=== PATIENT | female | born 1970 | race Caucasian/White ===

== ENCOUNTER 2020-11-10 11:38 | Inpatient (IN) | payer MEDICARE, OTHER, SELFPAY ==
[2020-11-10 12:42] LABS: #Lymphocytes 1.2 thou/uL (1.20-3.40); #Monocytes 0.8 thou/uL (0.11-0.59); #Neutrophils 8.5 thou/uL (1.40-6.50); %Basophils 0.4 % (0.0-1.0); %Eosinophils 0.1 % (0.0-10.0); %Lymphocytes 11.1 % (21.0-51.0); %Monocytes 7.8 % (0.0-10.0); %Neutrophils 80.7 % (42.0-75.0); Mean Corpuscular HGB CONC 33.8 g/dL (32.0-36.0); Mean Corpuscular Hemoglobin 33.1 pg (27.0-31.0); Mean Corpuscular Volume 97.9 fL (78.0-98.0); Mean Platelet Volume 7.6 fL (7.4-10.4); Platelet Count 210 thou/uL (130-400); RBC Distribution Width 13.4 % (11.5-14.5); Red Blood Cell (RBC) Count 4.53 mill/uL (4.20-5.40); White Blood Cell (WBC) Count 10.5 thou/uL (4.8-10.8)
--- NOTE | 2020-11-10 12:52 | RAD ---
XR Chest 1 View Portable History: Chest pain Comparison: None. Findings: Lungs are clear. No pneumothorax or effusion. Cardiac silhouette and mediastinal contours a re within normal limits. No acute osseous or malalignment. Impression: No acute intrathoracic abnormality.
[2020-11-10 13:05] LABS: ALT (SGPT) 75 U/L (8-55); AST (SGOT) 90 U/L (5-34); Albumin 5.1 g/dL (3.5-5.0); Alkaline Phosphatase 128 U/L (40-110); Anion Gap 23 mmol/L (10-20); BUN (Urea Nitrogen) 13 mg/dL (9.8-20.1); Bilirubin, Total 1.1 mg/dL (0.2-1.2); Calc. Creatinine Clearance 0 mL/min (70-130); Calcium 9.5 mg/dL (7.8-10.44); Carbon Dioxide 26 mmol/L (22-29); Chloride 93 mmol/L (98-107); Globulin 3.6 g/dL (2.4-3.5); Glucose 208 mg/dL (70-105); Potassium 3.5 mmol/L (3.5-5.1); Protein, Total 8.7 g/dL (6.0-8.3); Sodium 138 mmol/L (136-145)
[2020-11-10 13:12] LABS: Bilirubin 1+ (Negative); Blood, Urine 1+ (Negative); Clarity Turbid (Clear); Glucose, Urine (Dipstick) 30 mg/dL (Negative); Ketone, Urine 20 mg/dL (Negative); Leukocyte 250 Leu/uL (Negative); Nitrite Negative (Negative); Protein, Urine (Dipstick) 300 mg/dL (Neg-Trace); RBC/HPF 0-3 HPF (0-3); Specific Gravity, Urine 1.034 (1.002-1.036)
[2020-11-10 13:21] LABS: Bacteria/HPF Rare-Few HPF (None Seen); Mucous/LPF 2+ LPF (<2+)
[2020-11-10] MEDS ORDERED: Vancomycin 1 GM/200 ML BAG ONE (13:32)
[2020-11-10] MEDS ORDERED: Ibuprofen 200 MG TAB ONE (13:32)
--- NOTE | 2020-11-10 13:59 | RAD ---
THREE VIEWS OF THE RIGHT ANKLE: 11/10/20 COMPARISON: None. HISTORY: Fall down stairs with ankle pain and inability to dorsiflex. FINDINGS: Three views of the right ankle shows no evidence of acute fracture or dislocation. Mild anterior soft tissue swelling is seen. No degenerative changes are present. IMPRESSION: No evidence of acute osseous abnormality. POS: EAA
[2020-11-10] MEDS ORDERED: Meropenem 1 GM in Sodium Chloride 0.9% 100 ML IVPB SCH (14:00)
[2020-11-10] MEDS ORDERED: Ondansetron PF 4 MG/2 ML Vial ONE (14:29)
[2020-11-10 14:44] LABS: Acetaminophen Less than 6.0 mcg/mL (10.0-30.0); Alcohol Less than 10 mg/dL (Less than 10); Salicylate Less than 8.0 mg/dL (15.0-30.0)
--- NOTE | 2020-11-10 14:45 | CT ---
CT ABDOMEN AND PELVIS WITHOUT CONTRAST: 11/10/20 COMPARISON: None. HISTORY: Nausea, vomiting, and fever. TECHNIQUE: Multiple contiguous axial images were obtained in a CT of the abdomen and pelvis without contrast. Sa gittal and coronal reformats were performed. FINDINGS: The patient is status post cholecystectomy. There is diffuse fatty infiltration of the liver. No foca l liver lesions are seen. The kidneys, adrenal glands, spleen, and pancreas are unremarkable. No calc ifications are seen in either kidney or ureter and there is no evidence of hydronephrosis. No free air, free fluid, or stranding changes are see in the abdomen or pelvis. The reproductive orga ns are unremarkable. The large and small bowel are unremarkable. The appendix is normal. No abdominal or pelvic lymphadenopathy are seen. Mild degenerative changes are seen in the spine. The visualized inferior thorax and abdominal wall soft tissues are unremarkable. IMPRESSION: 1. No evidence of acute intra-abdominal/pelvic abnormality. 2. Fatty liver. POS: EAA
[2020-11-10 14:53] LABS: Medtox Reader # READER 4; Opiate Screen Detected (NotDetected); THC/Cannabinoid Screen Detected (NotDetected)
[2020-11-10 14:54] LABS: Amphetamine Not Detected (NotDetected); Barbiturates Screen Not Detected (NotDetected); Benzodiazepine Screen Not Detected (NotDetected); Cocaine Metabolite Screen Not Detected (NotDetected); Medtox Control Line Valid? VALID (VALID); Methadone Not Detected (NotDetected); Methamphetamine Not Detected (NotDetected); Oxycodone Screen Not Detected (NotDetected); Phencyclidine (PCP) Not Detected (NotDetected); Tricyclic Screen Not Detected (NotDetected)
--- NOTE | 2020-11-10 15:31 | PDOC.FPRHP ---
- History of Present Illness Chief Complaint: N/V, fever History of Present Illness: Ms. Rankin is a 50 yo F with a history of hypothyroidism, HLD, and alcoholism complaining of vomiting and fever for 2 days with a Tmax of 103 at home. Her boyfriend has been covering her with ice packs to try and cool her down. Patient explained she had an episode of binge drinking 3-4 days ago. She reports binge drinking every 2 months with no alcohol consumption in between. Patient thought her vomiting was related to the drinking but says she feels so much worse than she normally does. Patient also complains of CP and SOB for the past month that is worse when she walks outside. Patient denies dysuria and drug use. She says her boyfriend's brother had COVID. ED Course: 1L NS, vanc, cefepime - Allergies/Adverse Reactions Allergies Allergy/AdvReac Type Severity Reaction Status Date / Time cefaclor [From Ceclor] Allergy Rash Verified 11/10/20 13:50 ciprofloxacin [From Cipro] Allergy Verified 11/10/20 13:50 Sulfa (Sulfonamide Allergy Verified 11/10/20 13:50 Antibiotics) - Home Medications Medication Instructions Recorded Confirmed Type QUEtiapine Fumarate [Seroquel] 300 mg PO HS 11/10/20 11/10/20 History - History PMHx: hypothyroid, HLD, anxiety, depression, TIA PSHx: cervical spinal fusions, urethrotomy FHx: Mom-breast cancer, Sister - hypothyroid Social: Denies tobacco or drug use. Endorses alcohol use, 3-4 days of binge drinking approximately every 2 months. - Review of Systems General: reports: fever/chills ENT: denies: nasal congestion Respiratory: reports: shortness of breath. denies: cough, congestion Cardiovascular: reports: chest pain. denies: edema Gastrointestinal: reports: nausea, vomiting. denies: diarrhea, constipation, abdominal pain, GI bleeding Genitourinary: denies: dysuria Skin: denies: rashes, itching Musculoskeletal: denies: pain Neurological: denies: syncope Psychological: reports: anxiety, depression - Vital signs BP: 141/95 HR: 120 RR: 15 Tmax: 100.6 Pox: 97% on RA Wt: 68kg - Physical Exam -Constitutional: tremulous HEENT: normocephalic and atraumatic, EOMI, no scleral icterus, grossly normal vision, grossly normal hearing Neck: FROM Heart: RRR, no murmurs/rubs/gallops, pulses present, no edema Lungs: CTAB, no respiratory distress Abdomen: soft, non-tender Musculoskeletal: ROM grossly normal -Musculoskeletal: plantar flexed right foot Heme/Lymphatic: no unusual bruising or bleeding Psychiatric: normal mood and affect, good judgment and insight, intact recent and remote memory FMR H&P: Results - Labs Result Diagrams: 11/11/20 05:22 11/11/20 05:22 Lab results: WBC 10.5 thou/uL (4.8-10.8) 11/10/20 12:28 Hgb 15.0 g/dL (12.0-16.0) 11/10/20 12:28 Hct 44.3 % (36.0-47.0) 11/10/20 12:28 MCV 97.9 fL (78.0-98.0) 11/10/20 12:28 Plt Count 210 thou/uL (130-400) 11/10/20 12:28 Neutrophils % 80.7 % (42.0-75.0) H 11/10/20 12:28 Sodium 138 mmol/L (136-145) 11/10/20 12:28 Potassium 3.5 mmol/L (3.5-5.1) 11/10/20 12:28 Chloride 93 mmol/L (98-107) L 11/10/20 12:28 Carbon Dioxide 26 mmol/L (22-29) 11/10/20 12:28 BUN 13 mg/dL (9.8-20.1) 11/10/20 12:28 Creatinine 1.02 mg/dL (0.6-1.1) 11/10/20 12:28 Glucose 208 mg/dL (70-105) H 11/10/20 12:28 Lactic Acid 2.3 mmol/L (0.5-2.2) H 11/10/20 12:28 Calcium 9.5 mg/dL (7.8-10.44) 11/10/20 12:28 Total Bilirubin 1.1 mg/dL (0.2-1.2) 11/10/20 12:28 AST 90 U/L (5-34) H 11/10/20 12:28 ALT 75 U/L (8-55) H 11/10/20 12:28 Alkaline Phosphatase 128 U/L (40-110) H 11/10/20 12:28 Serum Total Protein 8.7 g/dL (6.0-8.3) H 11/10/20 12:28 Albumin 5.1 g/dL (3.5-5.0) H 11/10/20 12:28 Urine Ketones 20 mg/dL (Negative) A 11/10/20 12:17 Urine Blood 1+ (Negative) A 11/10/20 12:17 Urine Nitrite Negative (Negative) 11/10/20 12: Ur Leukocyte Esterase 250 Ava/uL (Negative) A 11/10/20 12: Urine RBC 0-3 HPF (0-3) 11/10/20 12: Urine WBC 11-20 HPF (0-3) A 11/10/20 12:17 Ur Squamous Epith Cells 4-6 HPF (0-3) A 11/10/20 12: Urine Bacteria Rare-Few HPF (None Seen) 11/10/20 12:17 - Radiology Interpretation Chest x-ray Status: report reviewed by me (no cardiopulmonary process) CT scan - abdomen Status: report reviewed by me (Abd/Pelvis: fatty liver) Other Status: report reviewed by me (Right ankle Xray: no acute process) FMR H&P: A/P - Plan 50 yo F with history of hypothyroidism and alcoholism complaining of 2 days of vomiting and fever Urinary Tract Infection -UA: WBC, LE, blood -Flu and COVID neg -Tmax 100.6, HR 120s, RR 22 -WBC 10.5, lactate 2.3>1.3 -Received 1L NS, vanc, and meropenem in ED -Continue cefepime due to patient's cefaclor allergy (no rocephin) -Procal pending -LR 120mL/hr -HIV, Hepatitis panel pending -Urine gram stain, UCx, BCx pending Alcohol Abuse -ASE protocol -Librium 25mg q6h, Valium 5 prn Hypothyroidism -Patient reports she is not currently taking medication -TSH pending Insomnia -Continue Seroquel 300mg HLD -Will try to determine what medication is supposed to be on Depression/Anxiety -Takes Zoloft, unsure of what dose. Will MedRec tomorrow. Diet: Regular DVT PPx: lovenox PCP: [facility] Code: FULL Dispo: eLOS <48 hours pending treatment of UTI and improvement of vital signs FMR H&P: Upper Level - Plan Date/Time: 11/10/20 1531 IQuirino DO, have evaluated this patient and agree with findings/plan as outlined by international banker resident. Pertinent changes/additions are listed here. 50 yo F with hx of alcohol abuse, and psychiatric dx presents to ED for 2 days nausea and vomiting she also reports a fever at home, chest tightness for the last month with sob. no presyncope, DEWEY, or angina symptoms. She recently consumed a large amount of alcohol, she reports doing this every few months. her last drink was 3-4 days ago. she denies any drug use, dysuria, body aches or known exposures. in the ED she had elevated LFTS and a UA that was + for wbc, and a lactic acidosis. She was given merem/vanc and a L of fluid. CT abd/pel was neg except for fatty liver. on my exam she has psychomotor agitation and tachycardia. no murmurs, CTAB, abd ttp over suprapubic area mainly. no DECLAN, pulses full. Acute alcohol withdrawal/drug intoxication is most likely her primary problem, we will treat with benzos, initiate ASE protocol, admin thiamine. fever with possible UTI source will be treated with rocephin. hypovolemia 2/2 emesis consider cyclical vomiting syndrome, treat with IVF resusc. and phenegran. transaminitis and fatty liver likely 2/2 alcohol, obtain hepatitis studies and monitor. additionally for her febrile illness will test for HIV, covid neg. admit to med obs for ELOS<48hrs Addendum - Attending - Attending Attestation Date/Time: 11/11/20 2800 I personally evaluated the patient and discussed the management with Dr. Barrios/Mario. I agree with the History, Examination, Assessment and Plan documented above with any addition or exceptions noted below.
[2020-11-10 15:36] LABS: Lactic Acid 1.3 mmol/L (0.5-2.2)
[2020-11-10] MEDS ORDERED: Lorazepam 2 MG/ML VIAL ONE (16:12)
[2020-11-10] MEDS ORDERED: Acetaminophen 650 MG Suppository PR PRN (16:24)
[2020-11-10] MEDS ORDERED: Promethazine 25 MG TAB PO PRN (16:24)
[2020-11-10] MEDS ORDERED: Acetaminophen 325 MG TAB PO PRN (16:24)
[2020-11-10] MEDS ORDERED: diphenhydrAMINE 25 MG CAP PO PRN (16:38)
[2020-11-10 16:54] LABS: SARS-CoV-2 NAA Rapid Test Not Detected (NotDetected)
[2020-11-10] MEDS ORDERED: Thiamine 100 MG TAB PO SCH (17:15)
[2020-11-10] MEDS ORDERED: Acetaminophen 325 MG TAB ONE (18:09)
[2020-11-10 18:21] LABS: HBCM Index 0.08 S/CO (0-0.79); HBSAg Index 0.22 S/CO (0-0.99); HIV (1/2) Antibody/Antigen Non-Reactive (NonReactive); HIV 1/2 INDEX 0.13 S/CO (<1.00); Hep A IgM AB Non-Reactive (NonReactive); Hep A IgM S/CO 0.11 S/CO (0-0.79); Hep B Surf Ag Non-Reactive S/CO (NonReactive); Hep C IgG Ab Non-Reactive (NonReactive); Hep C Index 0.05 S/CO (0-0.79); Hepatitis B Core IgM Abs Non-Reactive (NonReactive)
[2020-11-10 19:25] LABS: Free T4 (Free Thyroxine) 0.72 ng/dL (0.70-1.48)
[2020-11-10] MEDS: Lactated Ringer's 1,000 ML IV SCH ×2 (20:41→20:53)
[2020-11-10] MEDS: Promethazine HCl 25 MG/ML VIAL IM/IV PRN (20:42)
[2020-11-10] MEDS: chlordiazePOXIDE HCl 25 MG CAP PO SCH (20:53)
[2020-11-10] MEDS: Cefepime 1 GM in Sodium Chloride 0.9% 100 ML IVPB SCH (20:57)
[2020-11-10 22:11] VITALS: BMI 24.7
[2020-11-10] MEDS: Diazepam 10 MG/2 ML SYRINGE IVP PRN (22:42)
[2020-11-11] MEDS: chlordiazePOXIDE HCl 25 MG CAP PO SCH ×5 (00:48→23:06)
[2020-11-11] MEDS: Lactated Ringer's 1,000 ML IV SCH ×6 (00:50→23:12)
[2020-11-11 05:46] LABS: #Eosinphils 0.1 thou/uL (0.0-0.7); #Lymphocytes 1.5 thou/uL (1.20-3.40); #Monocytes 0.3 thou/uL (0.11-0.59); %Basophils 0.6 % (0.0-1.0); %Eosinophils 1.8 % (0.0-10.0); %Lymphocytes 31.1 % (21.0-51.0); %Monocytes 6.9 % (0.0-10.0); %Neutrophils 59.7 % (42.0-75.0); Hemoglobin 12.2 g/dL (12.0-16.0); Mean Corpuscular HGB CONC 32.9 g/dL (32.0-36.0); Mean Corpuscular Hemoglobin 32.9 pg (27.0-31.0); Mean Platelet Volume 7.7 fL (7.4-10.4); Platelet Count 137 thou/uL (130-400); RBC Distribution Width 13.8 % (11.5-14.5); Red Blood Cell (RBC) Count 3.72 mill/uL (4.20-5.40)
[2020-11-11 06:11] LABS: Anion Gap 12 mmol/L (10-20); BUN (Urea Nitrogen) 9 mg/dL (9.8-20.1); Calc. Creatinine Clearance 97 mL/min (70-130); Calcium 8.1 mg/dL (7.8-10.44); Carbon Dioxide 26 mmol/L (22-29); Chloride 105 mmol/L (98-107); Glucose 114 mg/dL (70-105); Sodium 140 mmol/L (136-145)
--- NOTE | 2020-11-11 06:32 | PDOC.FM ---
- Subjective Subjective: Ms. Rankin says she feels "just terrible" this morning, stating her throat hurts from all the throwing up she has been doing the past few days. She denies any recent vomiting, stating she is only dry heaving because she has nothing left in her stomach. She does say the phenergen has helped her nausea. - Objective Vital Signs & Weight: Vital Signs (12 hours) Temp Pulse Resp BP BP Pulse Ox 11/11/20 04:00 108/72 11/11/20 03:28 97.8 F 100 16 108/72 95 11/11/20 00:00 98/66 11/10/20 23:21 98.6 F 97 20 96/66 96 11/10/20 20:00 98.6 F 112 H 18 130/84 130/84 96 Weight Weight 65.5 kg I&O: 11/09/20 11/10/20 11/11/20 06:59 06:59 06:59 Intake Total 2250 Balance 2250 Result Diagrams: 11/11/20 05:22 11/11/20 05:22 Phys Exam - Physical Examination Constitutional: NAD HEENT: moist MMs, sclera anicteric Neck: full ROM Respiratory: no wheezing, clear to auscultation bilateral Cardiovascular: RRR, no significant murmur Gastrointestinal: soft, non-tender, no distention Musculoskeletal: no edema, pulses present Neurological: moves all 4 limbs Psychiatric: normal affect, A&O x 3 Skin: no rash Dx/Plan - Plan Plan: 50 yo F with history of hypothyroidism and alcoholism complaining of 2 days of vomiting and fever Urinary Tract Infection -UA: WBC, LE, blood -Flu and COVID neg -Tmax 100.6, HR 120s, RR 22 -WBC 10.5>5.0, lactate 2.3>1.3 -Received 1L NS, vanc, and meropenem in ED -Continue cefepime due to patient's cefaclor allergy (no rocephin) -Procal 0.08 -LR 120mL/hr -HIV, Hepatitis panel negative -Urine gram stain, UCx, BCx pending Alcohol Abuse -ASE protocol -Librium 25mg q6h, Valium 5 prn Hypothyroidism -Patient reports she is not currently taking medication -TSH 10.2, T3 2.78, T4 0.72 -Restart home med Insomnia -Continue Seroquel 300mg HLD -MedRec today Depression/Anxiety -Takes Zoloft, unsure of what dose. Will MedRec today. Diet: Regular DVT PPx: lovenox PCP: [facility] Code: FULL Dispo: Discharge today if patient tolerates PO diet, may need one more night. Patient's symptoms seem more likely related to alcohol withdrawal. Will continue to treat UTI. Addendum - Attending - Attending Attestation Date/Time: 11/11/20 0375 I personally evaluated the patient and discussed the management with Dr. Barrios. I agree with the History, Examination, Assessment and Plan documented above with any addition or exceptions noted below. Patient here with multiple complaints, but the most symptomatic at this time appears to be alcohol withdrawals. She continues on Librium with Valium PRN, continue ASE protocol. She continues on IV abx for possible UTI, though her UA was equivocal. Do not suspect sepsis but instead sympathetic stimulation from her withdrawals. Monitor for DTs. She has repeated vomiting her the patient, consider cannabinoid hyperemesis. Symptomatic treatment, await urine cx. PO challenge.
[2020-11-11] MEDS ORDERED: Potassium Chloride 20 MEQ TAB PO SCH (06:45)
[2020-11-11] MEDS: Thiamine 100 MG TAB PO SCH (07:47)
[2020-11-11] MEDS: Cefepime 1 GM in Sodium Chloride 0.9% 100 ML IVPB SCH ×2 (07:47→19:55)
[2020-11-11] MEDS: Enoxaparin Sodium 40 MG/0.4 ML SYRINGE SC SCH (07:48)
[2020-11-11] MEDS: Diazepam 10 MG/2 ML SYRINGE IVP PRN (08:41)
[2020-11-11 08:42] LABS: ALT (SGPT) 43 U/L (8-55); AST (SGOT) 53 U/L (5-34); Albumin 3.6 g/dL (3.5-5.0); Alkaline Phosphatase 87 U/L (40-110); Bilirubin, Direct 0.3 mg/dL (0.1-0.3); Bilirubin, Total 0.8 mg/dL (0.2-1.2)
[2020-11-11] MEDS: Chloraseptic Spray 180 ml Bottle PO PRN ×2 (11:41→19:57)
[2020-11-11] MEDS: Promethazine HCl 25 MG/ML VIAL IM/IV PRN (12:21)
[2020-11-11] MEDS: Gabapentin 100 MG CAP PO SCH ×2 (14:10→19:56)
[2020-11-11] MEDS: Ibuprofen 200 MG TAB PO PRN (17:35)
[2020-11-12] MEDS: chlordiazePOXIDE HCl 25 MG CAP PO SCH ×3 (05:20→17:02)
[2020-11-12] MEDS: Chloraseptic Spray 180 ml Bottle PO PRN ×2 (05:23→14:03)
[2020-11-12 07:28] LABS: Anion Gap 16 mmol/L (10-20); BUN (Urea Nitrogen) 7 mg/dL (9.8-20.1); Calc. Creatinine Clearance 102 mL/min (70-130); Calcium 8.1 mg/dL (7.8-10.44); Carbon Dioxide 24 mmol/L (22-29); Chloride 106 mmol/L (98-107); Glucose 115 mg/dL (70-105); Potassium 4.3 mmol/L (3.5-5.1); Sodium 142 mmol/L (136-145)
--- NOTE | 2020-11-12 07:37 | PDOC.FM ---
- Subjective Subjective: Ms. Rankin reports she still feels extremely weak this AM. She denies any vomiting but says she still feels nauseous when she tries to eat but the phenergen helps her. She is worried about the pain she has in her right foot and her ability to transport out of the bed, stating she hasn't been able to walk to the bathroom. - Objective Vital Signs & Weight: Vital Signs (12 hours) Temp Pulse Resp BP BP Pulse Ox 11/12/20 04:00 112/78 11/12/20 03:50 98.0 F 73 16 112/78 97 11/12/20 00:00 114/78 11/11/20 23:10 98 F 89 18 114/78 95 11/11/20 20:00 98.6 F 102 H 16 120/76 120/76 95 Weight Weight 65.5 kg I&O: 11/11/20 11/12/20 11/13/20 06:59 06:59 06:59 Intake Total 2250 4490 Output Total 1450 Balance 2250 3040 Result Diagrams: 11/11/20 05:22 11/12/20 07:07 Phys Exam - Physical Examination Constitutional: NAD HEENT: moist MMs, sclera anicteric Neck: full ROM Respiratory: no wheezing, no rales, no rhonchi, clear to auscultation bilateral Cardiovascular: RRR, no significant murmur Gastrointestinal: soft, no distention mildly tender throughout Musculoskeletal: no edema, pulses present Neurological: moves all 4 limbs Psychiatric: normal affect, A&O x 3 Skin: no rash Dx/Plan - Plan Plan: 50 yo F with history of hypothyroidism and alcoholism complaining of 2 days of vomiting and fever Urinary Tract Infection -UA: WBC, LE, blood -Flu and COVID neg -Tmax 100.6, HR 120s, RR 22 -WBC 10.5>5.0, lactate 2.3>1.3 -Received 1L NS, vanc, and meropenem in ED -Cefepime (11/11) - will discontinue today -Procal 0.08 -HIV, Hepatitis panel negative -Urine gram stain showed normal skin mayra -UCx, BCx no growth to date Alcohol Abuse -ASE protocol -Librium 25mg q6h, Valium 5 prn -Discussed with patient if she would like a librium taper going home. She denied stating she doesn't need it and she is never going ot drink again Right Ankle Pain -Complains of right ankle pain that has been present for 1-2 years -Right Ankle Xray negative -Encouraged patient to wear brace and follow-up outpatient Hypothyroidism -Patient reports she is not currently taking medication -TSH 10.2, T3 2.78, T4 0.72 -Patient does not know home medicine. Will start on synthroid today. Insomnia -Continue Seroquel 300mg HLD -Unknown home medication Depression/Anxiety -Continue Zoloft Diet: Regular DVT PPx: lovenox PCP: [facility] Code: FULL Dispo: Will check on patient this afternoon and discharge home. Though she has many complaints she is medically stable and we have ruled out and infection or acute processes. Addendum - Attending - Attending Attestation Date/Time: 11/12/20 3556 I personally evaluated the patient and discussed the management with Dr. Barrios. I agree with the History, Examination, Assessment and Plan documented above with any addition or exceptions noted below. Patient here with symptomatic alcohol withdrawals. Her vitals and symptoms are improved with current Librium regimen. Her UA gram stain revealed mixed mayra, and she has no evidence of systemic infection. Do not anticipate sepsis picture or UTI. Hoping to ensure adequate PO intake today and discharge home.
[2020-11-12] MEDS: Enoxaparin Sodium 40 MG/0.4 ML SYRINGE SC SCH (07:57)
[2020-11-12] MEDS: Gabapentin 100 MG CAP PO SCH ×2 (07:57→14:02)
[2020-11-12] MEDS: Ibuprofen 200 MG TAB PO PRN (07:58)
[2020-11-12] MEDS: Lactated Ringer's 1,000 ML IV SCH (07:59)
[2020-11-12] MEDS: Thiamine 100 MG TAB PO SCH (07:59)
[2020-11-12] MEDS: Cefepime 1 GM in Sodium Chloride 0.9% 100 ML IVPB SCH (07:59)
[2020-11-12] MEDS ORDERED: Levothyroxine Sodium 100 MCG TAB PO SCH (09:15)
[2020-11-12 17:07] VITALS: BP 109/83; TEMP 98.6
[2020-11-13] MEDS ORDERED: Levothyroxine Sodium 100 MCG TAB PO SCH (06:00)
--- NOTE | 2020-11-14 01:03 | DIS ---
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 PROCEDURES: Chest x-ray on 11/10, revealed no acute abnormality. X-ray of right ankle on 11/10 revealed no acute osseous abnormality. Abdomen and pelvis CT on 11/10 revealed a fatty liver. PRIMARY DIAGNOSES: 1. Urinary tract infection. 2. Alcohol withdrawal. SECONDARY DIAGNOSES: 1. Right ankle pain. 2. Hypothyroidism. 3. Insomnia. 4. Hyperlipidemia. 5. Depression and anxiety. DISCHARGE MEDICATIONS: 1. Seroquel 300 mg p.o. at night. 2. Zoloft 200 mg p.o. daily. 3. Gabapentin 200 mg p.o. t.i.d. 4. Phenergan 25 mg p.o. q.6 hours p.r.n. 5. Synthroid 100 mcg p.o. daily. Discontinued medications, none. HISTORY OF PRESENT ILLNESS/BRIEF HOSPITAL COURSE: Ms. Rankin is a 50-year-old female with a history of hypothyroidism and alcoholism, complaining of vomiting and fever for 2 days with a T-max of 103 at home. Her boyfriend has been covering her with ice pack to try and cool her down. Patient explained she had episode of binge drinking 3-4 days ago. She reports binge drinking every 2 months. There is no alcohol consumption in between. The patient thought her vomiting was related to the drinking but said she feels so much worse than she normally does. The patient also complains of chest pain, shortness of breath in the past month that is worse when she walks outside. She denies . She reports her boyfriend's brother had COVID. Patient received vancomycin and cefepime in the ED, was continued for 2 more days. Patient was afebrile. On presentation, had normal white count. UA was positive for leukocytes, blood, and white blood cell count. Culture showed normal skin mayra. Due to patient's history of alcohol abuse, she was also treated with Librium daily and given Valium p.r.n. for alcohol withdrawal. Patient did request Valium on one occasion that she was not showing signs of withdrawal. The patient was given Phenergan for her nausea, which she reported helped. Patient continued to complain of weakness, stating she was unable to get out of the bed and go to the restroom. Also complaining of right foot pain that has been there for many years. PT evaluated the patient and found that she is unable to bear weight on that right foot, but was able to move around with a walker. Case Management spoke with patient and discussed the option of rehab referral, though patient said she had 2 dogs at home. inpatient program at this time. The patient does not have a current PCP to arrange Home Health services and did not want to decide on the PCP at time of discharge. The patient was transported home via EMS. The patient was also offered outpatient counseling versus [employer] for her social history, but was not interested and did not think it will be helpful to her at this time. Patient was discharged medically stable, and told to follow up outpatient for her right foot pain. DISPOSITION: Stable. DISCHARGE INSTRUCTIONS: 1. Location: Home. 2. Diet: Normal. 3. Activity: As tolerated. 4. Followup: With PCP in 1-2 weeks. Job ID: [id number]
== END 2020-11-12 18:29 | disposition home or self-care (01) | DRG 897 ==
LOC: ERS 11:38 → T4-B 15:28 → OBSVTOIN 11-12 06:44
PROVIDERS: ADMIT Student in an Organized Health Care Education/Training Program; ATTEND Student in an Organized Health Care Education/Training Program
PROC: HZ2ZZZZ Detoxification Services for Substance Abuse Treatment (ICD-10-PCS; principal; 2020-11-12)
DX: F10.239 Alcohol dependence with withdrawal, unspecified (principal); N39.0 Urinary tract infection, site not specified; Z20.828 Contact with and (suspected) exposure to other viral communicable diseases; M25.571 Pain in right ankle and joints of right foot; G47.00 Insomnia, unspecified; E78.5 Hyperlipidemia, unspecified; F32.9 Major depressive disorder, single episode, unspecified; F41.9 Anxiety disorder, unspecified; Y90.0 Blood alcohol level of less than 20 mg/100 ml; E03.9 Hypothyroidism, unspecified; E86.1 Hypovolemia; K70.0 Alcoholic fatty liver; Z88.1 Allergy status to other antibiotic agents; Z91.013 Allergy to seafood; Z79.899 Other long term (current) drug therapy; Z86.73 Personal history of transient ischemic attack (TIA), and cerebral infarction without residual deficits; Z98.1 Arthrodesis status; Z80.3 Family history of malignant neoplasm of breast; Z83.49 Family history of other endocrine, nutritional and metabolic diseases
CPT/HCPCS: 0240U; 36415; 36416; 71045; 74176; 80048; 80053; 80076; 80306; 80307; 81003; 81015; 82550; 83605; 84145; 84439; 84443; 84481; 85025; 86705; 86709; 86803; 87040; 87077; 87086; 87340; 87389; 93005; 94760; 96361; 96365; 96366; 96368; 96372; 96375; 96376; G0378; J0692; J1650; J2060; J2185; J2405; J2550; J3360; J3370; J3490; Q0163; Q0169

== ENCOUNTER 2021-07-15 13:25 | Emergency (ER) | payer MEDICARE, SELFPAY ==
[2021-07-15] MEDS ORDERED: Acetaminophen 500 MG TAB ONE (14:02)
[2021-07-15 14:08] LABS: #Basophils 0.1 thou/uL (0.0-0.2); #Eosinphils 0.1 thou/uL (0.0-0.7); #Lymphocytes 1.4 thou/uL (1.20-3.40); #Monocytes 0.5 thou/uL (0.11-0.59); #Neutrophils 6.2 thou/uL (1.40-6.50); %Basophils 0.7 % (0.0-1.0); %Eosinophils 1.7 % (0.0-10.0); %Lymphocytes 16.8 % (21.0-51.0); %Monocytes 6.2 % (0.0-10.0); %Neutrophils 74.5 % (42.0-75.0); Hemoglobin 15.1 g/dL (12.0-16.0); Mean Corpuscular HGB CONC 34.4 g/dL (32.0-36.0); Mean Corpuscular Hemoglobin 32.6 pg (27.0-31.0); Mean Corpuscular Volume 94.8 fL (78.0-98.0); Mean Platelet Volume 7.5 fL (7.4-10.4); Platelet Count 186 thou/uL (130-400); RBC Distribution Width 12.3 % (11.5-14.5); Red Blood Cell (RBC) Count 4.62 mill/uL (4.20-5.40); White Blood Cell (WBC) Count 8.3 thou/uL (4.8-10.8)
[2021-07-15 14:17] LABS: Bilirubin Negative (Negative); Blood, Urine Negative (Negative); Clarity Clear (Clear); Glucose, Urine (Dipstick) Normal (Negative); Ketone, Urine Negative (Negative); Leukocyte Negative Leu/uL (Negative); Nitrite Negative (Negative); Protein, Urine (Dipstick) 20 mg/dL (Neg-Trace); Specific Gravity, Urine 1.033 (1.002-1.036); Urobilinogen Normal mg/dL (Less than 2); pH, Urine 5.5 (5.0-9.0)
[2021-07-15 14:23] LABS: ALT (SGPT) 103 U/L (8-55); AST (SGOT) 216 U/L (5-34); Albumin 4.3 g/dL (3.5-5.0); Alkaline Phosphatase 113 U/L (40-110); Anion Gap 16 mmol/L (10-20); BUN (Urea Nitrogen) 11 mg/dL (9.8-20.1); Bilirubin, Total 0.5 mg/dL (0.2-1.2); Calc. Creatinine Clearance 0 mL/min (70-130); Calcium 9.6 mg/dL (7.8-10.44); Carbon Dioxide 21 mmol/L (22-29); Chloride 103 mmol/L (98-107); Globulin 3.2 g/dL (2.4-3.5); Glucose 170 mg/dL (70-105); Lipase 29 U/L (8-78); Potassium 4.3 mmol/L (3.5-5.1); Protein, Total 7.5 g/dL (6.0-8.3); Sodium 136 mmol/L (136-145)
[2021-07-15 21:00] LABS: SARS-CoV-2 PCR by NAA Not Detected (NotDetected)
== END 2021-07-15 16:00 | disposition home or self-care (01) ==
LOC: ERS 13:25
DX: R11.2 Nausea with vomiting, unspecified (principal); R19.7 Diarrhea, unspecified; Z20.822 Contact with and (suspected) exposure to COVID-19; E03.9 Hypothyroidism, unspecified; E78.5 Hyperlipidemia, unspecified; Z79.899 Other long term (current) drug therapy
CPT/HCPCS: 71045; 80053; 81003; 83605; 83690; 85025; 87804 ×2; U0003; U0005; 36415; 99284

== ENCOUNTER 2023-03-29 12:13 | Emergency (ER) | payer MEDICARE, MEDICAID ==
[~2023-03-29 12:13] MED LIST: Iopamidol-370 76% 500 ML MDV (1 ML CHARGE) ONE
[2023-03-29 13:22] LABS: #Eosinphils 0.1 thou/uL (0.0-0.7); #Lymphocytes 1.8 thou/uL (1.20-3.40); #Monocytes 0.3 thou/uL (0.11-0.59); #Neutrophils 3.8 thou/uL (1.40-6.50); %Basophils 0.7 % (0.0-1.0); %Eosinophils 1.8 % (0.0-10.0); %Lymphocytes 29.8 % (21.0-51.0); %Monocytes 5.3 % (0.0-10.0); %Neutrophils 62.5 % (42.0-75.0); Hemoglobin 14.8 g/dL (12.0-16.0); Mean Corpuscular HGB CONC 34.3 g/dL (32.0-36.0); Mean Corpuscular Hemoglobin 33.3 pg (27.0-31.0); Mean Corpuscular Volume 97.3 fl (78.0-98.0); Mean Platelet Volume 7.8 fL (7.4-10.4); Platelet Count 174 10x3/uL (130-400); RBC Distribution Width 11.5 % (11.5-14.5); Red Blood Cell (RBC) Count 4.46 mill/uL (4.20-5.40); White Blood Cell (WBC) Count 6.1 10x3/uL (4.8-10.8)
[2023-03-29 13:55] LABS: ALT (SGPT) 81 U/L (8-55); AST (SGOT) 145 U/L (5-34); Albumin 4.4 g/dL (3.5-5.0); Alkaline Phosphatase 103 U/L (40-110); Anion Gap 18 mmol/L (10-20); BUN (Urea Nitrogen) 7 mg/dL (9.8-20.1); Bilirubin, Total 0.3 mg/dL (0.2-1.2); Calc. Creatinine Clearance 0 mL/min (70-130); Calcium 9.6 mg/dL (7.8-10.44); Carbon Dioxide 22 mmol/L (22-29); Chloride 101 mmol/L (98-107); Estimated GFR 68; Globulin 2.8 g/dL (2.4-3.5); Glucose 371 mg/dL (70-105); Lipase 32 U/L (8-78); Potassium 3.9 mmol/L (3.5-5.1); Protein, Total 7.2 g/dL (6.0-8.3); Sodium 137 mmol/L (136-145)
[2023-03-29] MEDS ORDERED: Ondansetron PF 4 MG/2 ML Vial ONE (16:13)
[2023-03-29] MEDS ORDERED: Morphine 4 MG/ML VIAL ONE (16:13)
[2023-03-29 17:05] LABS: Bilirubin Negative (Negative); Blood, Urine Negative (Negative); Clarity Clear (Clear); Glucose, Urine (Dipstick) Greater than 1000 mg/dL (Negative); Ketone, Urine Negative (Negative); Leukocyte Negative Leu/uL (Negative); Nitrite Negative (Negative); Protein, Urine (Dipstick) Negative (Neg-Trace); Urobilinogen Normal mg/dL (Less than 2); pH, Urine 5.5 (5.0-9.0)
== END 2023-03-29 16:32 | disposition home or self-care (01) ==
LOC: ERS 12:13
DX: E11.9 Type 2 diabetes mellitus without complications (principal); R10.9 Unspecified abdominal pain; R11.2 Nausea with vomiting, unspecified
CPT/HCPCS: 36415; 74177; 80053; 81003; 83690; 84484; 85025; 93005; 96361; 96374; 96375; J2270; J2405; Q9967

== ENCOUNTER 2025-08-08 19:56 | Emergency (ER) | payer MEDICARE, OTHER ==
[2025-08-08 22:03] LABS: Bacteria/HPF None Seen HPF (None Seen); CAUTI Indications for Culture Pelvic or flank pain; Glucose, Urine (Dipstick) Greater than 1000 mg/dL (Negative); Leukocyte 25 Leu/uL (Negative); Protein, Urine (Dipstick) Negative (Neg-Trace); RBC/HPF 0-3 HPF (0-3); Specific Gravity, Urine 1.043 (1.002-1.036); WBC/HPF 0-3 HPF (0-3)
[2025-08-08 22:05] LABS: Urine Culture Reflex No No
[2025-08-09 00:12] LABS: #Basophils 0.06 10x3/uL (0.0-0.2); #Eosinophils 0.13 10x3/uL (0.0-0.7); #Monocytes 0.52 10x3/uL (0.11-0.59); #Neutrophils 3.86 10x3/uL (1.40-6.50); %Basophils 0.9 % (0.0-1.0); %Eosinophils 1.8 % (0.0-10.0); %Lymphocytes 34.9 % (21.0-51.0); %Monocytes 7.4 % (0.0-10.0); %Neutrophils 54.7 % (42.0-75.0); Hematocrit 48.7 % (36.0-47.0); Hemoglobin 16.2 g/dL (12.0-16.0); Mean Corpuscular Hemoglobin 31.0 pg (27.0-31.0); Mean Corpuscular Volume 93.3 fL (78.0-98.0); Platelet Count 188 10x3/uL (130-400); Red Blood Cell (RBC) Count 5.22 mill/uL (4.20-5.40); White Blood Cell (WBC) Count 7.05 10x3/uL (4.8-10.8)
[2025-08-09 00:47] LABS: ALT (SGPT) 19 U/L (Less than 34); AST (SGOT) 36 U/L (11-34); Albumin 4.0 g/dL (3.1-4.5); Alkaline Phosphatase 120 U/L (40-110); Anion Gap 17 mmol/L (10-20); BUN (Urea Nitrogen) 9 mg/dL (9.8-20.1); Bilirubin, Total 0.4 mg/dL (0.3-1.2); Calc. Creatinine Clearance 0 mL/min (70-130); Calcium 9.6 mg/dL (7.8-10.44); Carbon Dioxide 18 mmol/L (22-29); Chloride 102 mmol/L (98-107); Globulin 3.6 g/dL (2.4-3.5); Glucose 274 mg/dL (70-105); Lipase 20 U/L (8-78); Potassium 4.4 mmol/L (3.5-5.1); Sodium 133 mmol/L (136-145)
[2025-08-09] MEDS ORDERED: Ondansetron PF 4 MG/2 ML Vial ONE (01:05)
[2025-08-09] MEDS ORDERED: Ketorolac Tromethamine 30 MG (1 mL) VIAL ONE (03:26)
[2025-08-09 04:17] LABS: ALT (SGPT) 16 U/L (Less than 34); AST (SGOT) 21 U/L (11-34); Albumin 3.6 g/dL (3.1-4.5); Alkaline Phosphatase 102 U/L (40-110); Anion Gap 13 mmol/L (10-20); BUN (Urea Nitrogen) 8 mg/dL (9.8-20.1); Bilirubin, Total 0.4 mg/dL (0.3-1.2); Calc. Creatinine Clearance 0 mL/min (70-130); Calcium 8.6 mg/dL (7.8-10.44); Carbon Dioxide 26 mmol/L (22-29); Chloride 102 mmol/L (98-107); Globulin 2.8 g/dL (2.4-3.5); Glucose 220 mg/dL (70-105); Potassium 4.1 mmol/L (3.5-5.1); Sodium 137 mmol/L (136-145)
[2025-08-09] MEDS ORDERED: valACYclovir 500 MG TAB ONE ×2 (04:45→04:48)
[2025-08-09] MEDS ORDERED: Iopamidol-370 76% 500 ML MDV (1 ML CHARGE) ONE (14:40)
[2025-08-11 09:15] LABS: HSV 1 - DNA Negative (Negative); HSV 2 - DNA Negative (Negative)
== END 2025-08-09 04:55 | disposition home or self-care (01) ==
LOC: ERS 19:56
DX: R10.2 Pelvic and perineal pain (principal); R81 Glycosuria; E11.65 Type 2 diabetes mellitus with hyperglycemia; Z55.6 Problems related to health literacy
CPT/HCPCS: 74177; 80053 ×2; 81001; 83690; 85025; 87086; 87480; 87510; 87529 ×2; 87660; J1885; J2270; J2405; 36415; 96361; 96374; 96375

== ENCOUNTER 2025-08-31 20:50 | Emergency (ER) | payer MEDICARE ==
[2025-08-31] MEDS ORDERED: Lactulose 20 GM (30 mL) UDCUP ONE ×2 (21:29→23:20)
[2025-08-31 21:36] LABS: #Basophils 0.05 10x3/uL (0.0-0.2); #Eosinophils 0.04 10x3/uL (0.0-0.7); #Monocytes 0.51 10x3/uL (0.11-0.59); #Neutrophils 7.32 10x3/uL (1.40-6.50); %Basophils 0.5 % (0.0-1.0); %Eosinophils 0.4 % (0.0-10.0); %Lymphocytes 15.5 % (21.0-51.0); %Monocytes 5.4 % (0.0-10.0); %Neutrophils 78.0 % (42.0-75.0); Hematocrit 44.1 % (36.0-47.0); Hemoglobin 15.0 g/dL (12.0-16.0); Mean Corpuscular Hemoglobin 30.9 pg (27.0-31.0); Mean Corpuscular Volume 90.9 fL (78.0-98.0); Platelet Count 203 10x3/uL (130-400); Red Blood Cell (RBC) Count 4.85 mill/uL (4.20-5.40); White Blood Cell (WBC) Count 9.40 10x3/uL (4.8-10.8)
[2025-08-31] MEDS ORDERED: Ondansetron PF 4 MG/2 ML Vial ONE (21:50)
[2025-08-31 21:52] LABS: ALT (SGPT) 21 U/L (Less than 34); AST (SGOT) 45 U/L (11-34); Albumin 4.3 g/dL (3.1-4.5); Alkaline Phosphatase 108 U/L (40-110); Anion Gap 17 mmol/L (10-20); BUN (Urea Nitrogen) 13 mg/dL (9.8-20.1); Bilirubin, Total 0.5 mg/dL (0.3-1.2); Calc. Creatinine Clearance 0 mL/min (70-130); Calcium 9.7 mg/dL (7.8-10.44); Carbon Dioxide 21 mmol/L (22-29); Chloride 103 mmol/L (98-107); Globulin 3.3 g/dL (2.4-3.5); Glucose 309 mg/dL (70-105); Lipase 19 U/L (8-78); Potassium 3.7 mmol/L (3.5-5.1); Sodium 137 mmol/L (136-145)
[2025-08-31 22:58] LABS: Bacteria/HPF None Seen HPF (None Seen); CAUTI Indications for Culture Dysuria,urgency,freq; Glucose, Urine (Dipstick) Greater than 1000 mg/dL (Negative); Leukocyte 75 Leu/uL (Negative); Protein, Urine (Dipstick) 10 mg/dL (Neg-Trace); RBC/HPF None Seen HPF (0-3); Specific Gravity, Urine 1.037 (1.002-1.036); WBC/HPF 21-50 HPF (0-3)
[2025-08-31 23:05] LABS: Urine Culture Reflex Yes Yes
== END 2025-09-01 02:50 | disposition home or self-care (01) ==
LOC: ERS 20:50
DX: K59.00 Constipation, unspecified (principal); N39.0 Urinary tract infection, site not specified; E11.9 Type 2 diabetes mellitus without complications
CPT/HCPCS: 36415; 74177; 80053; 81001; 83605; 83690; 85025; 87040; 87086; 96374; 96375